=== PATIENT | male | born 1945 | race Caucasian/White ===

== ENCOUNTER → 2017-12-15 | Outpatient (CLI) | payer MEDICARE ==
--- NOTE | 2017-12-15 20:37 | CT ---
EXAMINATION TYPE: CT pelvis wo con DATE OF EXAM: 12/15/2017 COMPARISON: None HISTORY: Right sided posterior contusion injury 2 days ago to lower back and pelvis rule out sacral f racture with pain. CT DLP: 1466 mGycm Automated exposure control for dose reduction was used. FINDINGS: Sacrum and coccyx are intact. Sacroiliac joints show some bridging osteophytes on axial images. No odom spicious widening is evident. There is [id number] symmetric axial joint space loss in both hips . No acute fracture or dislocation in pelvis or either hip is identified. Pubic symphysis is intact. There is [id number] disc space L3-L4 and L4-L5 level with vacuum disc phenomenon L4-L5 level. T here is facet arthropathy lower lumbar levels. Posterior spur disc complex effaces the anterior theca l sac L4-L5 level on axial image 26. Moderate multilevel anterior spurring is present. Bladder is poorly distended and thus suboptimally evaluated. Prostate gland felt normal in size. There is no suspicious small or large bowel dilatation. There are diverticula scattered throughout th e colon most prominent in the visualized portion of sigmoid colon. Along the right aspect of mid sigm oid colon there is a thick-walled fluid collection measuring 3.1 x 2.9 cm with air-fluid levels felt to reflect peridiverticular abscess on axial image 45. Minimal surrounding fat stranding or inflammat ory change identified currently. Small fat-containing right inguinal hernia is present. IMPRESSION: 1. No acute osseous fracture with particular attention to sacrum and coccyx. 2. Small 3.1 cm peridiverticular abscess with minimal surrounding acute inflammatory change. A Yellow level critical message alert has been initiated for Christian Fay MD via the [employer] Critical Results System on 12/15/2017 8:35 PM. This message alert has been sent to Christian Fay MD via the preferences provided by the clinician for the receipt of Radiology Critical Findings. [employer] e ID [id number].
== END | disposition home or self-care (01) ==
LOC: RADCTMAIN 18:41
PROVIDERS: ATTEND Orthopaedic Surgery
DX: K57.20 Diverticulitis of large intestine with perforation and abscess without bleeding (principal); M25.561 Pain in right knee; M17.11 Unilateral primary osteoarthritis, right knee; M54.5 Low back pain
CPT/HCPCS: 72192